=== PATIENT | female | born 1975 | race American Indian/Alaskan Native ===

== ENCOUNTER 2018-01-26 22:01 | Emergency (ER) | payer SELFPAY ==
[2018-01-26 22:34] VITALS: BP 140/78
[2018-01-27] MEDS ORDERED: NORCO 5/325 ONE (01:21)
[2018-01-27] MEDS ORDERED: NORCO 5/325 PO ONE ×2 (01:25→05:03)
[2018-01-27] MEDS ORDERED: AUGMENTIN 875 MG PO ONE (05:03)
--- NOTE | 2018-01-27 05:12 | Emergency Department Report ---
- General Chief complaint: Skin/Abscess/Foreign Body Stated complaint: SWELLING TO FACE Time Seen by Provider: 01/27/18 04:44 Source: patient Mode of arrival: Ambulatory Limitations: No Limitations - History of Present Illness Initial comments: 2 days of left-sided jaw pain. She noticed a nodule that appeared on her face. It drained a little bit yesterday. She hasn't been similar happen a year ago that resolved on its own. Afebrile. No difficulty eating or swallowing. - Related Data Previous Rx's Medication Instructions Recorded Last Taken Type Amoxicillin/K Clav Tab [Augmentin 1 tab PO Q12HR #10 tab 01/27/18 Unknown Rx 875 mg] traMADol [Ultram] 50 mg PO Q6HR PRN #8 tablet 01/27/18 Unknown Rx Allergies Allergy/AdvReac Type Severity Reaction Status Date / Time No Known Allergies Allergy Verified 01/27/18 01:31 Abscess Boil HPI - HPI Chief Complaint: Skin/Abscess/Foreign Body Stated Complaint: SWELLING TO FACE Time Seen by Provider: 01/27/18 04:44 Home Medications: Previous Rx's Medication Instructions Recorded Last Taken Type Amoxicillin/K Clav Tab [Augmentin 1 tab PO Q12HR #10 tab 01/27/18 Unknown Rx 875 mg] traMADol [Ultram] 50 mg PO Q6HR PRN #8 tablet 01/27/18 Unknown Rx Allergies/Adverse Reactions: Allergies Allergy/AdvReac Type Severity Reaction Status Date / Time No Known Allergies Allergy Verified 01/27/18 01:31 ED Review of Systems ROS: Stated complaint: SWELLING TO FACE Other details as noted in HPI Constitutional: denies: chills, fever ENT: ear pain Skin: lesions ED Past Medical Hx - Past Medical History Previous Medical History?: No - Surgical History Past Surgical History?: No Additional Surgical History: x2 - Social History Smoking Status: Current Every Day Smoker Substance Use Type: Alcohol - Medications Home Medications: Home Medications Medication Instructions Recorded Confirmed Last Taken Type Amoxicillin/K Clav Tab [Augmentin 1 tab PO Q12HR #10 tab 01/27/18 Unknown Rx 875 mg] traMADol [Ultram] 50 mg PO Q6HR PRN #8 tablet 01/27/18 Unknown Rx ED Physical Exam - General Limitations: No Limitations General appearance: alert, in no apparent distress - Head Head exam: Present: other (left preauricular 3 cm nodule, tender. ) - ENT ENT exam: Present: normal orophraynx, mucous membranes moist, TM's normal bilaterally, normal external ear exam - Neurological Exam Neurological exam: Present: alert, oriented X3 ED Course Vital Signs 01/26/18 22:30 Temperature 98.5 F Pulse Rate 87 Respiratory 18 Rate Blood Pressure 140/78 O2 Sat by Pulse 98 Oximetry ED Medical Decision Making - Medical Decision Making 42-year-old female with no significant past medical history that presents to the ER with left tender facial mouth droop. Vital signs are stable. Patient is well-appearing. Physical exam is concerning for an infected lymph node versus cyst. Bedside ultrasound shows well-circumscribed area with a circular mass in the center that appears to have flow. It concerns me for a lymph node. Given that I believe that this is a lymph node, I would not incise it at this time. I have instructed the patient to use warm compresses and I will start her on Augmentin. The patient does not live here. She will follow up in [place] for reevaluation. - Differential Diagnosis cellulitis, abscess, cyst, lymphadenitis Critical care attestation.: If time is entered above; I have spent that time in minutes in the direct care of this critically ill patient, excluding procedure time. ED Disposition Clinical Impression: Lymphadenitis Disposition: [id number] TO HOME OR SELFCARE Is pt being admited?: No Does the pt Need Aspirin: No Condition: Stable Instructions: Adenitis (ED) Additional Instructions: Apply warm compresses to the nodule on your face. Take antibiotics as prescribed. If the nodule does not improve over the next 3 days, please follow up in [place] with a physician for reevaluation. Prescriptions: Amoxicillin/K Clav Tab [Augmentin 875 mg] 1 tab PO Q12HR #10 tab traMADol [Ultram] 50 mg PO Q6HR PRN #8 tablet PRN Reason: Pain Referrals: PRIMARY CARE,MD [Primary Care Provider] - 3-5 Days
== END 2018-01-27 05:38 | disposition home or self-care (01) ==
LOC: ED 22:01
DX: I88.9 Nonspecific lymphadenitis, unspecified (principal); F17.200 Nicotine dependence, unspecified, uncomplicated
CPT/HCPCS: 99282